=== PATIENT | female | born 1960 | race Caucasian/White ===

== ENCOUNTER → 2023-12-13 00:24 | Outpatient (REF) | payer BC, SELFPAY | LOC: DHSLP 00:24 | PROVIDERS: ATTENDING PHYSICIAN Family Medicine | DX: G47.33 Obstructive sleep apnea (adult) (pediatric) (principal) | CPT/HCPCS: 95800 ==

== ENCOUNTER → 2024-01-09 10:11 | Outpatient (REF) | payer BC, SELFPAY ==
--- NOTE | 2024-01-09 13:48 | PN.DE ---
Diabetes Education
- -
01/09/2024
Patient here for outpatient follow up for assistance with insulin pump. Sees Dr. Maldonado, endocrine, on a regular basis, who recommended more intense assistance for pump management.
Alma is using the Medtronic pump with Smart Guard and sensor. Pump settings:
Carb ratio 1:15
Correction 60
target 110 - 130
basal .8 for 24 hours.
24 hour basal total 19.2
I am able to look in the history of the pump and with every meal glucose trends up to over 250. At this visit changed carb ratio to 1:12
Alma expressed concern about her weight, reviewed her meal choices. She is eating over 100 grams of carb at meals.
Recommended she try to limit carbs to 30 grams max, for at least 5 days to establish pattern.
She will report to me in 1 week with glucose results overnight to determine of basal rates need adjustments.
She is very receptive.
== END ==
LOC: DES 10:11
PROVIDERS: ATTENDING PHYSICIAN Family Medicine
DX: E10.65 Type 1 diabetes mellitus with hyperglycemia (principal)
CPT/HCPCS: 99078

== ENCOUNTER 2024-01-10 12:48 | Outpatient (RCR) | payer BC, SELFPAY | END 2024-01-10 23:59 | disposition home or self-care (01) | LOC: RPT 12:48 | PROVIDERS: ATTENDING PHYSICIAN Psychiatry & Neurology Neurology; FAMILY PHYSICIAN Family Medicine | DX: R25.1 Tremor, unspecified (principal); Z73.6 Limitation of activities due to disability; R26.89 Other abnormalities of gait and mobility; Z91.81 History of falling | CPT/HCPCS: 97163; 97167 ==

== ENCOUNTER → 2024-01-12 07:32 | Outpatient (REF) | payer BC, SELFPAY | LOC: MRI 07:32 | PROVIDERS: ATTENDING PHYSICIAN Psychiatry & Neurology Neurology; FAMILY PHYSICIAN Family Medicine | DX: R25.1 Tremor, unspecified (principal); R26.9 Unspecified abnormalities of gait and mobility | CPT/HCPCS: 70553; A9575 ==

== ENCOUNTER → 2024-01-15 09:58 | Outpatient (REF) | payer BC, SELFPAY | LOC: REG 09:58 | PROVIDERS: ATTENDING PHYSICIAN Internal Medicine Gastroenterology | DX: K86.2 Cyst of pancreas (principal) | CPT/HCPCS: 89055 ==

== ENCOUNTER → 2024-01-16 10:11 | Outpatient (REF) | payer BC, SELFPAY ==
[2024-01-16 11:35] LABS: Hemoglobin 11.2 g/dL (12.0-16.0)
[2024-01-16 12:07] LABS: ALT (SGPT) 20 U/L (0-35); AST (SGOT) 28 U/L (14-36); Alkaline Phosphatase 102 U/L (38-126); Blood Urea Nitrogen 25 mg/dl (7-17); Calcium 8.9 mg/dl (8.4-10.2); Carbon Dioxide 27 mmol/L (22-30); Chloride 106 mmol/L (98-107); Glucose 80 mg/dl (70-99); HDL Cholesterol 68 mg/dl; LDL Cholesterol, Calculated 155 mg/dl; Potassium 4.5 mmol/L (3.5-5.1); Sodium 136 mmol/L (135-145); Total Bilirubin 0.4 mg/dl (0.2-1.3); Total Cholesterol 245 mg/dl (50-199); Total Protein 7.1 g/dl (6.3-8.2); Triglyceride 110 mg/dl (10-149); Very Low Density Lipoprotein 22 mg/dl (0-30); eGFR > 60.00
[2024-01-16 12:11] LABS: Erythrocyte Sed Rate 33 mm/hour (0-20)
[2024-01-16 12:23] LABS: Vitamin D, 25-OH*** 38.1 ng/mL (30-80)
[2024-01-16 12:36] LABS: TSH Reflex To Free T4 1.48 uIU/ml (0.47-4.68)
[2024-01-16 12:48] LABS: Glycohemoglobin (HgbA1c) 8.2 % (4.0-5.6)
[2024-01-16 12:49] LABS: Microalbumin, Random Urine > 57.0 mg/dl (0.6-1.7)
[2024-01-16 13:12] LABS: Folate 8.6 ng/ml (2.76-20); Vitamin B12 965 pg/ml (239-931)
[2024-01-17 14:27] LABS: Lyme Antibody Screen, EIA Negative (Negative)
[2024-01-18 16:30] LABS: Syphilis/T. pallidum Ab Reflex Negative (Negative)
[2024-01-19 00:19] LABS: Ceruloplasmin 29 mg/dL (16-45)
[2024-01-19 01:09] LABS: ds-DNA Ab, IgG Reflex To Titer 4 IU (0-24)
[2024-01-19 02:54] LABS: ANA, IgG Reflex to HEp-2 None Detected (None Detected)
[2024-01-19 13:41] LABS: Alpha-Tocopherol 9.9 mg/L (5.5-18.0); Gamma-Tocopherol 3.4 mg/L (0.0-6.0)
== END ==
LOC: REG 10:11
PROVIDERS: ATTENDING PHYSICIAN Internal Medicine Gastroenterology; FAMILY PHYSICIAN Family Medicine; OTHER PHYSICIAN Psychiatry & Neurology Neurology; REFERRING PHYSICIAN Internal Medicine Endocrinology, Diabetes & Metabolism
DX: K21.9 Gastro-esophageal reflux disease without esophagitis (principal); E10.319 Type 1 diabetes mellitus with unspecified diabetic retinopathy without macular edema; E78.5 Hyperlipidemia, unspecified; R25.1 Tremor, unspecified
CPT/HCPCS: 36415; 80053; 80061; 82043; 82306; 82390; 82570; 82607; 82728; 82746; 83036; 84443; 84446; 85018; 85652; 86038; 86140; 86225; 86618; 86780

== ENCOUNTER → 2024-01-25 11:43 | Outpatient (REF) | payer OTHER, BC, SELFPAY | LOC: RAD 11:43 | PROVIDERS: ATTENDING PHYSICIAN Nurse Practitioner Family | DX: M79.645 Pain in left finger(s) (principal) | CPT/HCPCS: 73130 ==

== ENCOUNTER 2024-02-15 06:35 | Outpatient (RCR) | payer BC, SELFPAY | END 2024-02-15 23:59 | disposition home or self-care (01) | LOC: RPT 06:35 | PROVIDERS: ATTENDING PHYSICIAN Psychiatry & Neurology Neurology; FAMILY PHYSICIAN Family Medicine | DX: R25.1 Tremor, unspecified (principal); R26.9 Unspecified abnormalities of gait and mobility; Z73.6 Limitation of activities due to disability | CPT/HCPCS: 97110; 97112; 97530 ==

== ENCOUNTER 2024-02-21 21:12 | Observation (INO) | payer BC, SELFPAY ==
[2024-02-21] VITALS (12 sets, daily range): BP systolic 102–219; BP diastolic 59–91; BMI 34.6
[2024-02-21] MEDS: ASPIRIN 325 MG PO (17:38)
[2024-02-21] MEDS: TYLENOL 650 MG PO (17:38)
[2024-02-21 17:40] LABS: % Basophils 0.6 % (0-2); % Eosinophils 0.8 % (0-6); % Immature Granulocytes 0.2 % (0-0.5); % Lymphocytes 27.6 % (20.5-51.1); % Monocytes 12.2 % (1.7-9.3); % Neutrophils 58.6 % (42.2-75.2); Absolute Lymphocytes 1.3 10^3/uL (1.2-3.4); Absolute Monocytes 0.6 10^3/uL (0.1-0.6); Absolute Neutrophils 2.8 10^3/uL (1.4-6.5); Hematocrit 31.8 % (37.0-47.0); Hemoglobin 10.8 g/dL (12.0-16.0); Mean Corpuscular Hgb 29.8 pg (27.0-31.0); Mean Corpuscular Volume 87.8 fL (81.0-99.0); Mean Platelet Volume 10.1 fL (7.4-10.4); Nucleated Red Blood Cells % 0 %; Platelet Count 276 10^3/uL (130-400); Red Blood Cell Count 3.62 10^6/uL (4.20-5.40); Red Cell Dist. Width 14.6 % (11.5-14.5); White Blood Cell Count 4.9 10^3/uL (4.8-10.8)
--- NOTE | 2024-02-21 17:46 | ED.GENMED ---
History of Present Illness
<Curly Rodas Jr., PA-C - Last Filed: 02/21/24 18:51>
General
Chief Complaint: Chest Pain
Source: patient
Exam Limitations: none
Time Seen by Provider: 02/21/24 16:37
Nursing documentation reviewed up to this point in time: agreed with
Travel History
Have you had any contact with someone who has COVID-19?: No
Do you have any symptoms of coronavirus? Fever > 100 degrees, chills, cough, shortness of breath, sore throat, loss of taste or smell, muscle aches, or headache?: No
History of Present Illness
History of Present Illness:
63-year-old female patient with history of insulin-dependent diabetes hypertension hyperlipidemia previous stroke presenting to the emergency department today with concerns of elevated blood pressure chest initially elevated blood pressure while at
PT yesterday chest pain started overnight last night roughly 12 hours prior to arrival to the emergency department. Ongoing pain since achy left upper chest no associated shortness of breath nausea vomiting diaphoresis. She contacted her primary
care doctor that recommended taking extra dose of losartan. Denies similar symptoms in the past.
Past History
<Curly Rodas Jr., PA-C - Last Filed: 02/21/24 18:51>
Past History
ED Past Medical History: GERD, HTN, Hypercholesterolemia, IDDM and Other (Obstructive sleep apnea)
ED Past Surgical History: Appendectomy, , Gynecological (Hysterectomy) and Other (Parathyroidectomy)
Social History
Tobacco: Non-smoker
Alcohol: Occasional
Drug: None
Personal: (Recently )
Living: with family
Employment: Employed
Family History
Family History: Early CAD
Review of Systems
<RUSLAN Márquez Jr. Last Filed: 02/21/24 18:51>
Review of Systems
Allergies reviewed?: Yes
All Other Systems: ROS reviewed and negative except as documented in HPI and ROS
Phy Exam
<Curly Rodas Jr., PA-C - Last Filed: 02/21/24 18:51>
Physical Exam
Physical Exam:
GENERAL: Alert , in no apparent distress
EYE: pupils equal and reactive
NECK: Supple, no significant adenopathy.
ENT: o/p clr, mmm.
CARDIAC: Regular rate and rhythm .
LUNGS: Clear breath sounds bilaterally, no acute respiratory distress, no wheezes/rales/rhonchi
ABDOMEN: Soft, without focal tenderness, no r/g, no cvat
NEUROLOGICAL: Alert and oriented, no focal neuro deficits
SKIN: Warm and dry, skin intact.
MUSCULOSKELETAL: No edema, well perfused.
PSYCH: Normal and appropriate interaction.
Scores
<Curly Rodas Jr., PA-C - Last Filed: 02/21/24 18:51>
Heart Score for Chest Pain Patients
STEMI patient?: No
History: Slightly or Non-Suspicious
ECG: Nonspecific Repolarization
Age: >45 - <65 years
Risk Factors: >/= 3 Risk Factors or History of CAD
Troponin: </= Normal Limit
Heart Score for Chest Pain Patients: 4
Heart Score Risk: 20.3% MACE over next 6 weeks
<Binu Gilman MD - Last Filed: 02/21/24 19:38>
Heart Score for Chest Pain Patients
Heart Score for Chest Pain Patients: 4
Heart Score Risk: 20.3% MACE over next 6 weeks
Course
<Curly Rodas Jr., PA-C - Last Filed: 02/21/24 18:51>
Orders/Labs/Results
Orders:
Orders
02/21/24 15:27
EKG [Electrocardiogram (*1)] Urgent
Reason for Study: Chest Pain
02/21/24 15:28
EKG- Treatment ONCE
02/21/24 17:26
Aspirin 325 mg PO NOW STA
02/21/24 17:34
Complete Blood Count/With Diff Urgent
Comprehensive Metabolic Panel Urgent
Troponin I Urgent
02/21/24 17:37
Acetaminophen [Tylenol] 650 mg .ROUTE .STK-MED ONE
02/21/24 17:38
Acetaminophen [Tylenol] 650 mg PO NOW STA
02/21/24 17:45
Chest [CR Chest - 2 Views ] Urgent
Comment:
Reason For Exam: cp
02/21/24 17:48
Losartan [Cozaar] 50 mg PO NOW STA
Abnormal Lab Results
02/21/24
17:34
RBC 3.62 L 10^6/uL
(4.20-5.40)
Hgb 10.8 L g/dL
(12.0-16.0)
Hct 31.8 L %
(37.0-47.0)
RDW 14.6 H %
(11.5-14.5)
Monocytes % 12.2 H %
(1.7-9.3)
Sodium 134 L mmol/L
(135-145)
BUN 27 H mg/dl
(7-17)
Glucose 126 H mg/dl
(70-99)
02/21/24 17:34
02/21/24 17:34
Vital Signs
Initial and Last Documented VS:
Initial Vital Signs
Temp Pulse Resp BP Pulse Ox
98.7 F 59 18 175/91 98
02/21/24 15:38 02/21/24 15:38 02/21/24 15:38 02/21/24 15:38 02/21/24 15:38
Last Documented Vital Signs
Temp Pulse Resp BP Pulse Ox
98.7 F 57 16 219/71 100
02/21/24 15:38 02/21/24 17:37 02/21/24 17:37 02/21/24 17:37 02/21/24 17:37
<Binu Gilman MD - Last Filed: 02/21/24 19:38>
Orders/Labs/Results
Orders:
Orders
02/21/24 15:27
EKG [Electrocardiogram (*1)] Urgent
Reason for Study: Chest Pain
02/21/24 15:28
EKG- Treatment ONCE
02/21/24 17:26
Aspirin 325 mg PO NOW STA
02/21/24 17:34
Complete Blood Count/With Diff Urgent
Comprehensive Metabolic Panel Urgent
Troponin I Urgent
02/21/24 17:37
Acetaminophen [Tylenol] 650 mg .ROUTE .STK-MED ONE
02/21/24 17:38
Acetaminophen [Tylenol] 650 mg PO NOW STA
02/21/24 17:45
Chest [CR Chest - 2 Views ] Urgent
Comment:
Reason For Exam: cp
02/21/24 17:48
Losartan [Cozaar] 50 mg PO NOW STA
Abnormal Lab Results
02/21/24
17:34
RBC 3.62 L 10^6/uL
(4.20-5.40)
Hgb 10.8 L g/dL
(12.0-16.0)
Hct 31.8 L %
(37.0-47.0)
RDW 14.6 H %
(11.5-14.5)
Monocytes % 12.2 H %
(1.7-9.3)
Sodium 134 L mmol/L
(135-145)
BUN 27 H mg/dl
(7-17)
Glucose 126 H mg/dl
(70-99)
02/21/24 17:34
02/21/24 17:34
Vital Signs
Initial and Last Documented VS:
Initial Vital Signs
Temp Pulse Resp BP Pulse Ox
98.7 F 59 18 175/91 98
02/21/24 15:38 02/21/24 15:38 02/21/24 15:38 02/21/24 15:38 02/21/24 15:38
Last Documented Vital Signs
Temp Pulse Resp BP Pulse Ox
98.7 F 57 16 219/71 100
02/21/24 15:38 02/21/24 17:37 02/21/24 17:37 02/21/24 17:37 02/21/24 17:37
<Curly Rodas Jr., PA-C - Last Filed: 02/21/24 18:51>
MDM/Problems Addressed
MDM/Problems Addressed:
63-year-old female presenting to the emergency department today with concerns of left-sided chest achy discomfort without radiation no associated nausea vomiting diaphoresis no exertional component with elevated blood pressure in the 170s 180s at
home. On arrival blood pressure in the 170s over 90s otherwise vital signs are normal. Patient no obvious distress normal heart and lung examination. EKG nonischemic labs unremarkable. Initial troponin negative. Chest x-ray with no emergent
findings no widening of the mediastinum. Blood pressure ongoing in the low 200s over 70s. Patient was given additional dose of losartan which she does take at home. Still ongoing intermittent chest pain here as well as elevated blood pressure
plan to admit for further monitoring overnight.
<Curly Rodas Jr., PA-C - Last Filed: 02/21/24 18:51>
*Critical Care Note
Total Time (30-74mins, 75-104mins- exclusive of procedures): Not Applicable
ED Attending Note
<Curly Rodas Jr., PA-C - Last Filed: 02/21/24 18:51>
-
Portions of this chart may have been created with voice recognition software.� Occasional wrong word or��sound alike� substitutions may have occurred due to the inherent limitations of voice recognition software.
<Binu Gilman MD - Last Filed: 02/21/24 19:38>
ED Attending Note
Patient seen and examined by attending physician: Yes
I performed the substantive portion of visit, reviewed & personally made and approve the management plan that is documented in note by myself or PRINCESS.: Yes
ED Attending Note:
63-year-old female woke at 4 AM with left-sided chest pain. Was there most of the morning. Resolved prior to ER arrival but recurred in the ER. No shortness of breath no pleuritic pain no shearing pain no upper back pain. No history of same
On exam patient is nontoxic in no distress. Systolic blood pressure 200+ but repeat pressure 175. Diastolic pressure stable. No respiratory distress. Lungs are clear. Abdomen nontender. Gait is normal neurologically nonfocal.
Testing has been stable. However with prolonged systolic hypertension, recurring chest pain moderate risk factors patient warrants inpatient management
Discharge Plan
Departure
Patient Disposition: Admit
Date of Disposition: 02/21/24
Time of Disposition: 18:50
Admit to: Telemetry
Admit to doctor: Vashti
Presentation/result/management discussed w/ accepting MD/DO: Hospitalist
Patient with high blood pressure during this ER visit?: Yes
Condition: Good
Covid-19: Not Applicable
Discharge Problem:
Chest pain, HTN (hypertension)
Prescriptions:
No Action
ferrous sulfate [FeroSul] 325 MG tablet
325 mg PO HS
cholecalciferol (vitamin D3) 2,000 UNITS tablet
2,000 unit PO HS
primidone 50 mg Tablet
50 mg PO DAILY
atorvastatin 20 mg Tablet
20 mg PO HS
bupropion HCl 150 mg Tablet Extended Release 24 Hr
150 mg PO HS
omeprazole 20 mg Tablet,Delayed Release (Dr/Ec)
20 mg PO HS
cyanocobalamin (vitamin B-12) [Vitamin B-12] 1,000 mcg Tablet
1,000 mcg PO HS
insulin lispro [Humalog U-100 Insulin] 100 unit/mL solution
0 unit SC .VIA INSULIN PUMP
sertraline 200 mg capsule
200 mg PO HS
losartan 50 MG tablet
50 mg PO HS
Patient Comments:
02/21/2024: Per pt, pcp wanted pt to increase Losartan to 100mg after today's visit.
aspirin [[place] Aspirin] 81 MG tablet,delayed release (DR/EC)
81 mg PO HS
Referrals:
Francisco Brar MD [Family Provider] -
Interventions
Interventions:
*Risk Screen - Suicide Last Done: 02/21/24 15:40
*General Assessment Last Done: 02/21/24 15:40
*Neglect/Abuse Screening Last Done: 02/21/24 15:40
*ED COVID-19 Vaccine History Last Done: 02/21/24 17:23
ED- Cardiac Assessment Last Done: 02/21/24 17:23
Discharge Date and Time
Print Language: ESTONIAN
[2024-02-21 17:59] LABS: ALT (SGPT) 21 U/L (0-35); AST (SGOT) 26 U/L (14-36); Albumin 4.3 g/dl (3.5-5.0); Alkaline Phosphatase 93 U/L (38-126); Blood Urea Nitrogen 27 mg/dl (7-17); Calcium 9.4 mg/dl (8.4-10.2); Carbon Dioxide 26 mmol/L (22-30); Chloride 100 mmol/L (98-107); Estimated Creatinine Clearance 86 ml/min; Glucose 126 mg/dl (70-99); Potassium 4.1 mmol/L (3.5-5.1); Sodium 134 mmol/L (135-145); Total Bilirubin 0.5 mg/dl (0.2-1.3); Total Protein 7.1 g/dl (6.3-8.2); eGFR > 60.00
[2024-02-21 18:04] LABS: Troponin I < 0.012 ng/ml
[2024-02-21] MEDS: COZAAR 50 MG PO (18:12)
--- NOTE | 2024-02-21 20:52 | HPS.HSE ---
Family Physician
-
Family Physician: Francisco Brar
Chief Complaint
-
Chest Pain
History of Present Illness
Patient is a 63-year-old female past medical history of diabetes mellitus, diabetic neuropathy, hypertension, hyperlipidemia and obstructive sleep apnea who presents with chest pain. Patient reports she awoke at 4 AM this morning with left-sided
chest pressure with occasional sharp stabbing pain. She notes pain radiates to the bilateral armpits on occasion. She denies associated shortness of breath. She denies diaphoresis, but did state she felt 'cold and clammy'. Patient reports while
working with physical therapy her blood pressure was noted to be elevated. After waking with chest pain this morning she saw her primary care provider in the office who also confirmed that her blood pressure was elevated. Patient states she did
recently start a new job where she is on her feet all day, and she notes the job is quite stressful. Patient denied any prior history of chest pain, but review of records indicate she was evaluated in the hospital in 2014 with similar presentation
of chest pain, at which time she had a negative coronary CTA as outpatient.
Medical History
Past Medical History
Past Medical History: Reports Other
Additional Past Medical History:
Diabetes Mellitus, Type II
Diabetic Neuropathy
Essential Hypertension
Hyperlipidemia
Essential Tremor
Obstructive Sleep Apnea
Hyperparathyroidism
Depression
Past Surgical History: Reports Other
Additional Past Surgical History:
Hysterectomy
Appendectomy
Parathyroidectomy
Social History
Tobacco: Non-smoker
Alcohol: Occasional
Family History
Family History: Other (Mother: Elio's granulomatosis)
Allergies / Home Medications
Allergies reflects when Allergies were last updated in [facility].
Home Medications with original date entered in [facility]
Allergy/Medication List:
Allergies
Allergy/AdvReac Type Severity Reaction Status Date / Time
amoxicillin [From Augmentin] Allergy Intermediate Hives Verified 02/21/24 15:38
clavulanic acid Allergy Intermediate Hives Verified 02/21/24 15:38
[From Augmentin]
Home Medications
cholecalciferol (vitamin D3) 50 mcg (2,000 unit) tablet 2,000 unit PO HS Supplement 06/15/15
ferrous sulfate 325 mg (65 mg iron) tablet (FeroSul) 325 mg PO HS Supplement 06/15/15
atorvastatin 20 mg tablet 20 mg PO HS High cholesterol 07/04/22
bupropion HCl 150 mg 24 hr tablet, extended release 150 mg PO HS Mental Health 07/04/22
omeprazole 20 mg tablet,delayed release 20 mg PO HS Gastrointestinal issue 07/04/22
primidone 50 mg tablet 50 mg PO DAILY tremors 07/04/22
aspirin 81 mg tablet,delayed release ([place] Aspirin) 81 mg PO HS 02/21/24
cyanocobalamin (vitamin B-12) 1,000 mcg tablet (Vitamin B-12) 1,000 mcg PO HS 02/21/24
insulin lispro 100 unit/mL subcutaneous solution (Humalog U-100 Insulin) 0 unit SC .VIA INSULIN PUMP 02/21/24
losartan 50 mg tablet 50 mg PO HS 02/21/24
sertraline 200 mg capsule 200 mg PO HS 02/21/24
Review of Systems
-
A 12 point ROS was completed and negative except as noted: Yes
Constitutional: Denies Fever or Chills
Respiratory: Denies Cough or Trouble Breathing
Cardiac: Reports Chest Pain; Denies Diaphoresis, Palpitations or Syncope
Physical Exam
Vital Signs
Vital Signs
Temp Pulse Resp BP Pulse Ox
98.7 F 66 19 150/65 98
02/21/24 15:38 02/21/24 20:15 02/21/24 20:15 02/21/24 20:00 02/21/24 17:45
Physical Exam
General: Comfortable and Conversant
HEENT: Anicteric and Moist mucous membranes
Respiratory: Clear and Non Labored Respirations
Cardiac: S1/S2 and Regular Rhythm
GI: Soft and Non Tender
Rectal: Deferred by Provider
Musculoskeletal: No Clubbing and No Cyanosis
Skin: Warm and Dry
Neuro: Awake, Alert, Oriented and Nonfocal/grossly intact
Laboratory Results
-
02/21/24 17:34
02/21/24 17:34
Laboratory Results
Total Bilirubin 0.5 mg/dl (0.2-1.3) 02/21/24 17:34
AST 26 U/L (14-36) 02/21/24 17:34
ALT 21 U/L (0-35) 02/21/24 17:34
Alkaline Phosphatase 93 U/L (38-126) 02/21/24 17:34
Troponin I < 0.012 ng/ml 02/21/24 17:34
Data Reviewed
-
Lab Data: Labs Reviewed by me
Impression/Plan
-
Chest Pain, initial troponin is negative
-Consult Cardiology
-Monitor on telemetry
-Continue to trend troponin
-Continue aspirin
-Continue nitroglycerin SL prn
Uncontrolled Hypertension
-BP improving following dose of losartan given in the emergency department
-Increase losartan 50mg BID
-Continue to monitor blood pressure
-Continue low sodium diet
Diabetes Mellitus, Type II
-Continue patient's own insulin pump
-Check HgbA1c
-Monitor sugars and continue coverage insulin
Hyperlipidemia
-Continue atorvastatin
Essential Tremor
-Continue primidone
Depression
-Continue bupropion and sertraline
Obstructive Sleep Apnea
-Patient state she has been compliant with her CPAP at home
DVT proph: Lovenox
Code Status: Full Code
--- NOTE | 2024-02-21 21:45 | W.PN.UPDATE ---
Update Note
Progress Note Update
Patient seen and examined independently. Agree with findings and plan as set forth today's H&P by Natalie Sargent PA-C.
Patient is a 63y F with PMH significant for anxiety / depression and hypertension who presents to ED complaining of elevated BP and chest pain. Patient states that she was at Occupational Therapy yesterday when routine BP check resulted in
systolic blood pressure in the 190s. This was quite unusual for the patient. She had no specific symptoms or complaints at that time. Patient notes that she woke around 4 AM today with sharp, stabbing left-sided chest pain. Area indicated is in
the anterior shoulder area. Patient states that she could feel her heart 'pounding' - but not racing / rapid. She denies any associated SOB, nausea or diaphoresis. She was able to return to sleep.
Today patient checked her BP at home and found it remained elevated in the 180s - 190s systolic. She presented to the ED for further evaluation.
Patient admits that she has been stressed lately and cites new job / position at work, standing for 8 hours / daily, etc.
Ass:
Chest Pain
Uncontrolled Hypertension
Anxiety / Depression
DM-II
Benign Essential Tremor
HARESH on CPAP
Plan:
Admitted for further evaluation and treatment.
EKG is unremarkable and troponin is undetectable.
Continue to monitor on tele and follow troponin x 3 sets total.
Monitor for any new/ recurrent chest pain symptoms.
Monitor BP - much improved after early dose of losartan.
Adjust med regimen as needed for improved control.
Patient reports increased salt load recently (canned gravy / chicken pot pie) and increased stress at work as potential etiologies of BP increase.
[2024-02-21 22:15] LABS: Glucose - Point of Care 216 mg/dl (70-99)
[2024-02-21] MEDS: VITAMIN D3 (cholecalciferol) 50 MCG PO (22:49)
[2024-02-21] MEDS: PROTONIX 40 MG PO (22:49)
[2024-02-21] MEDS: WELLBUTRIN XL (24 hour extended release) 150 MG PO (22:49)
[2024-02-21] MEDS: VITAMIN B-12 1000 MCG PO (22:49)
[2024-02-21] MEDS: ZOLOFT 200 MG PO (22:49)
[2024-02-21] MEDS: FEOSOL 325 MG PO (22:49)
[2024-02-21] MEDS: LIPITOR 20 MG PO (22:49)
[2024-02-22 00:44] LABS: Troponin I < 0.012 ng/ml
[2024-02-22] MEDS: PATIENT'S OWN INSULIN PUMP SC (01:16)
[2024-02-22 03:38] VITALS: BP 170/77
[2024-02-22 05:37] VITALS: BMI 33.5
[2024-02-22 05:57] LABS: Hematocrit 34.1 % (37.0-47.0); Hemoglobin 11.4 g/dL (12.0-16.0); Mean Corp Hgb Conc. 33.4 g/dL (33.0-37.0); Mean Corpuscular Hgb 29.5 pg (27.0-31.0); Mean Corpuscular Volume 88.1 fL (81.0-99.0); Mean Platelet Volume 9.9 fL (7.4-10.4); Platelet Count 277 10^3/uL (130-400); Red Blood Cell Count 3.87 10^6/uL (4.20-5.40); Red Cell Dist. Width 14.7 % (11.5-14.5)
[2024-02-22 06:22] LABS: Troponin I < 0.012 ng/ml
[2024-02-22 06:32] LABS: Blood Urea Nitrogen 26 mg/dl (7-17); Calcium 9.6 mg/dl (8.4-10.2); Carbon Dioxide 27 mmol/L (22-30); Chloride 101 mmol/L (98-107); Estimated Creatinine Clearance 84 ml/min; Glucose 148 mg/dl (70-99); HDL Cholesterol 77 mg/dl; LDL Cholesterol, Calculated 85 mg/dl; Potassium 4.1 mmol/L (3.5-5.1); Sodium 138 mmol/L (135-145); Total Cholesterol 184 mg/dl (50-199); Triglyceride 114 mg/dl (10-149); Very Low Density Lipoprotein 22 mg/dl (0-30); eGFR > 60.00
[2024-02-22 07:30] VITALS: BP 159/73
[2024-02-22 07:44] LABS: Glucose - Point of Care 116 mg/dl (70-99)
[2024-02-22] MEDS: MYSOLINE 50 MG PO (08:24)
[2024-02-22] MEDS: COZAAR 50 MG PO ×2 (08:24→21:36)
[2024-02-22] MEDS: PATIENT'S OWN INSULIN PUMP 2.60000000000000009 UNITS SC (08:29)
[2024-02-22 08:50] LABS: Glycohemoglobin (HgbA1c) 7.7 % (4.0-5.6)
--- NOTE | 2024-02-22 09:07 | CON.CAR ---
Addendum entered and electronically signed by Newtno Bray MD 02/22/24 11:15:
I saw and examined the patient.
The APPLICATION DEVELOPMENT TEAM LEAD or PA's note was reviewed and I agree with the note.
Comment: General: Well developed, well nourished in NAD.
Neck: Supple, no JVD, HJR, carotids +2 B/L, no bruits bilaterally.
Heart: Non displaced PMI, RRR, no murmurs, No S3, S4, no rubs.
Lungs: Clear to auscultation bilaterally, no wheeze, rhonchi, rubs bilaterally,
normal expiratory phase.
Abdomen: Normal bowel sounds, soft, non-tender, non-distended.
Extremities: No clubbing, cyanosis or edema bilaterally.
Neuro: Grossly nonfocal, awake, alert and oriented x3.
Alma has history of hypertension, hyperlipidemia, type 1 diabetes, hyperparathyroidism status post parathyroidectomy, essential tremor, anxiety. She presents complaints of chest discomfort and hypertension. She woke up at 4 AM with left-sided
chest discomfort came to the ER. Troponins have been negative. Cardiology was consulted.
Chest pain likely noncardiac. Will arrange for outpatient Lexiscan sestamibi stress test. Will check echocardiogram which was planned when last seen in our office. Will add HCTZ for blood pressure and check renal profile in 1 week. If
echocardiogram okay stable cardiology status for discharge
Original Note:
Consultation
Consultation Request
Date/Time Consultation Performed: 02/22/24
Requesting Provider: Dr. Lowe
Performing Provider: Alisa Walton PA-C for Dr. Bray
Reason for Consultation: CP, HTN
Medical History
-
Chief Complaint: CP
History of Present Illness:
Patient is a 63-year-old female with past medical history of hypertension, hyperlipidemia, type 1 diabetes diagnosed at age 33 in the setting of pancreatitis in setting, essential tremor, former smoker, iron deficiency, anxiety who works
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 She states on Monday 02/19 she was completing physical therapy and Occupational Therapy and they checked her blood pressure which was elevated at 186/70. They told her to repeat it the following morning at home
which she did and was 199/99. She also woke up yesterday morning at 4 AM with left-sided chest discomfort and feeling of her heart pounding. She was able to calm down with deep breathing. She was seen by her PCP yesterday afternoon and was told to
double her losartan from 50 mg daily to 50 mg twice daily, however was referred to the emergency room as she complained of headache and chest pain in the setting of elevated blood pressure. Upon further questioning today, patient does tell me she
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 She has been stressed out with her new duties as she is learning how to
complete them. Trops serially negative. Cardiology consulted for evaluation. She underwent exercise MIBI in 2014 in the setting of chest pain completing over 9 METS with a small mostly fixed anteroapical defect with subsequent cardiac CTA which was
unremarkable with calcium score of 0.
PMH:
HTN
HLD
DM1, diagnosed at age 33 in the setting of pancreatitis in setting, suboptimally controlled
History of hyperparathyroidism status post parathyroidectomy
Sinus bradycardia
Essential tremor
NETTA
Anxiety
GERD
Former smoker
Past Medical History
Past Medical History: Other (in HPI)
Social History
Tobacco: Former Smoker
Employment: Employed
Family History
Family History: Other (CVA in father)
Allergies / Home Medications
Allergy/AdvReac Type Severity Reaction Status Date / Time
amoxicillin [From Augmentin] Allergy Intermediate Hives Verified 02/21/24 15:38
clavulanic acid Allergy Intermediate Hives Verified 02/21/24 15:38
[From Augmentin]
�Medication �Instructions �Recorded �Confirmed �Type
cholecalciferol (vitamin D3) 50 2,000 unit PO HS Supplement 06/15/15 02/21/24 History
mcg (2,000 unit) tablet
ferrous sulfate 325 mg (65 mg 325 mg PO HS Supplement 06/15/15 02/21/24 History
iron) tablet (FeroSul)
atorvastatin 20 mg tablet 20 mg PO HS High cholesterol 07/04/22 02/21/24 History
bupropion HCl 150 mg 24 hr tablet, 150 mg PO HS Mental Health 07/04/22 02/21/24 History
extended release
omeprazole 20 mg tablet,delayed 20 mg PO HS Gastrointestinal issue 07/04/22 02/21/24 History
release
primidone 50 mg tablet 50 mg PO DAILY tremors 07/04/22 02/21/24 History
aspirin 81 mg tablet,delayed 81 mg PO HS 02/21/24 02/21/24 History
release ([place] Aspirin)
cyanocobalamin (vitamin B-12) 1,000 mcg PO HS 02/21/24 02/21/24 History
1,000 mcg tablet (Vitamin B-12)
insulin lispro 100 unit/mL 0 unit SC .VIA INSULIN PUMP 02/21/24 02/21/24 History
subcutaneous solution (Humalog
U-100 Insulin)
losartan 50 mg tablet 50 mg PO HS 02/21/24 02/21/24 History
sertraline 200 mg capsule 200 mg PO HS 02/21/24 02/21/24 History
Review of Systems
-
History Source: Patient
All other systems: Negative unless noted
Physical Exam
Vital Signs
Temp Pulse Resp BP Pulse Ox
98.6 F 51 22 159/73 98
02/22/24 07:30 02/22/24 08:24 02/22/24 07:30 02/22/24 08:24 02/22/24 07:30
Lab Results
02/22/24 05:25
02/22/24 05:25
Troponin I < 0.012 ng/ml 02/22/24 05:25
Physical Exam
General: Well Developed, Well Nourished, No Apparent Distress and Other (appears anxious)
HEENT: Normocephalic, Anicteric and Moist Mucous Membranes
Respiratory: Clear and Non Labored Respirations
Cardiac: S1/S2, Regular Rhythm and Other (santiago)
GI: Soft, Non Tender, Non Distended and Normal Bowel Sounds
Musculoskeletal: No Clubbing, No Cyanosis and No Edema
Skin: Warm and Dry
Neuro: AO x 3
Impression / Plan
-
Primary Sustainability Analyst: last seen by Dr. Cuellar in 2017
Assessment:
Presentation with HTN urgency
CP
Recent NSAID use
Serially negative trops x4
HTN
HLD
DM1, diagnosed at age 33 in the setting of pancreatitis in setting, suboptimally controlled
History of hyperparathyroidism status post parathyroidectomy
Sinus bradycardia
Essential tremor
NETTA
Anxiety
GERD
Former smoker
Exercise MIBI in 2014 in the setting of chest pain completing over 9 METS with a small mostly fixed anteroapical defect with subsequent cardiac CTA which was unremarkable with calcium score of 0
ECHO 02/22/24: pending
Plan:
-Patient presents with hypertensive urgency and chest pain
-Reports recent NSAID use. provided education on avoiding NSAIDs, decongestants, high salt content in setting of HTN
-Troponins serially negative
-EKG sinus bradycardia without acute ST abnormalities. No present chest pain
-Continue increased dose losartan 50 mg twice daily
-As blood pressures remain elevated, would consider addition of HCTZ 25mg daily with BMP in 1 week upon DC
-Check echo
-She has been working with diabetic mgmt to improve hgbA1c - was 13.2 in 2021, improved to 8.2 01/16/24. encouraged strict blood sugar control
-LDL suboptimal in setting of diabetes, 85. will increase lipitor dose to 40mg QPM
-given risk factors and CP, consider for OP stress testing
-continue OP aspirin. hgb stable at 11.4. remains on po iron
-will arrange OP cardiac follow up
Data Reviewed
-
EKG: Tracing Personally Visualized and interpreted
Radiology: Report Reviewed by me
Labs: Labs Reviewed by me
Old Records: Reviewed
[2024-02-22 11:49] LABS: Glucose - Point of Care 193 mg/dl (70-99)
--- NOTE | 2024-02-22 12:14 | W.PN.HOSP.TC ---
Today's Communication/Plan
-
check ECHO
Assessment / Plan
Assessment / Plan
pt is a 63 year old female
Chest Pain, initial troponin is negative--likely non cardiac--await echo--adjusting BP meds--need better anxiety/stress control
Uncontrolled Hypertension-BP improving following dose of losartan given in the emergency department-Increase losartan 50mg BID-Continue to monitor blood pressure-Continue low sodium diet--cards may add HCTZ
Diabetes Mellitus, Type II-Continue patient's own insulin pump-Check [id number]-Dbszuog sugars and continue coverage insulin
Hyperlipidemia-Continue atorvastatin
Essential Tremor-Continue primidone
Depression-Continue bupropion and sertraline
Obstructive Sleep Apnea-Patient state she has been compliant with her CPAP at home
DVT proph: Lovenox
Code Status: Full Code
Anticipated Discharge: Within 24 hours
Subjective/Interval History
-
Date of Service: February 22, 2024
pt concerned about BP--not adjusting to new job
Objective Data
-
Labs:
Laboratory Results
02/22/24
05:25
WBC 4.0 L
Hgb 11.4 L
Hct 34.1 L
Plt Count 277
Sodium 138
Potassium 4.1
Chloride 101
Carbon Dioxide 27
BUN 26 H
Creatinine 0.8
Glucose 148 H
Calcium 9.6
Vital Signs:
max temp for 24 hours
02/21/24
15:38
Temp 98.7 F
Vital Signs
Temp Pulse Resp BP Pulse Ox
98.6 F 51 22 159/73 98
02/22/24 07:30 02/22/24 08:24 02/22/24 07:30 02/22/24 08:24 02/22/24 07:30
I&O
02/21/24 02/22/2402/22/24
06:59 06:59 06:59
Intake Total 480 / 480
Balance 480 / 480
Review of Systems
-
All other systems: Reviewed and negative
Physical Exam
-
General: Well Developed, Well Nourished and No Apparent Distress
HEENT: Normocephalic and Atraumatic
Respiratory: Clear to Auscultation; Negative Wheezes or Rhonchi
Cardiac: Regular Rhythm and S1/S2; Negative Murmur
GI: Soft, Nontender, Nondistended and Normal Bowel Sounds
Musculoskeletal: No Clubbing, No Cyanosis and No Edema
Neuro: Awake and Alert
[2024-02-22 12:19] VITALS: BP 159/68; BP 172/74
[2024-02-22] MEDS: ORETIC 25 MG PO (12:29)
[2024-02-22] MEDS: PATIENT'S OWN INSULIN PUMP 3.60000000000000009 UNITS SC (13:01)
[2024-02-22 15:00] VITALS: BP 178/79
--- NOTE | 2024-02-22 16:34 | CM ---
telegraph office manager reviewed patient's chart and met with patient and patient lives alone in a one story home, patient is independent with adl's and ambulation, no dme, patient lives with her 2 dogs, patient has CPAP machine. Patient drives, [facility] pharmacy.
PCP: Dr Brar
Plan; Home when stable, no needs. OBS letter given not signed.
[2024-02-22 17:10] LABS: Glucose - Point of Care 251 mg/dl (70-99)
[2024-02-22] MEDS: PATIENT'S OWN INSULIN PUMP 4.59999999999999964 UNITS SC (18:19)
[2024-02-22] MEDS: LOVENOX 40 MG SC (18:20)
[2024-02-22 19:58] VITALS: BP 176/76
[2024-02-22] MEDS: FEOSOL 325 MG PO (21:41)
[2024-02-22] MEDS: VITAMIN D3 (cholecalciferol) 50 MCG PO (21:41)
[2024-02-22] MEDS: VITAMIN B-12 1000 MCG PO (21:41)
[2024-02-22] MEDS: PROTONIX 40 MG PO (21:41)
[2024-02-22] MEDS: WELLBUTRIN XL (24 hour extended release) 150 MG PO (21:41)
[2024-02-22] MEDS: LIPITOR 40 MG PO (21:41)
[2024-02-22] MEDS: ZOLOFT 200 MG PO (21:42)
[2024-02-22] MEDS: ASPIR LOW (ENTERIC COATED) 81 MG PO (21:42)
[2024-02-22] MEDS: PATIENT'S OWN INSULIN PUMP 1.80000000000000004 UNITS SC (22:05)
[2024-02-22 22:10] LABS: Glucose - Point of Care 189 mg/dl (70-99)
[2024-02-22 22:55] VITALS: BP 177/77
[2024-02-23 03:50] VITALS: BP 131/64
[2024-02-23 05:47] VITALS: BMI 32.9
[2024-02-23 07:00] VITALS: BP 149/71
[2024-02-23 07:07] LABS: Hemoglobin 12.4 g/dL (12.0-16.0); Mean Corp Hgb Conc. 32.6 g/dL (33.0-37.0); Mean Corpuscular Hgb 29.2 pg (27.0-31.0); Mean Corpuscular Volume 89.4 fL (81.0-99.0); Mean Platelet Volume 10.4 fL (7.4-10.4); Platelet Count 274 10^3/uL (130-400); Red Blood Cell Count 4.25 10^6/uL (4.20-5.40); Red Cell Dist. Width 14.6 % (11.5-14.5); White Blood Cell Count 5.1 10^3/uL (4.8-10.8)
[2024-02-23 07:25] LABS: Glucose - Point of Care 165 mg/dl (70-99)
[2024-02-23 07:33] LABS: Blood Urea Nitrogen 26 mg/dl (7-17); Calcium 9.8 mg/dl (8.4-10.2); Carbon Dioxide 28 mmol/L (22-30); Chloride 99 mmol/L (98-107); Estimated Creatinine Clearance 74 ml/min; Glucose 145 mg/dl (70-99); Magnesium 1.9 mg/dl (1.6-2.3); Potassium 4.3 mmol/L (3.5-5.1); Sodium 137 mmol/L (135-145); eGFR > 60.00
[2024-02-23] MEDS: ORETIC 25 MG PO (08:10)
[2024-02-23] MEDS: MYSOLINE 50 MG PO (08:10)
[2024-02-23] MEDS: COZAAR 50 MG PO (08:11)
[2024-02-23] MEDS: PATIENT'S OWN INSULIN PUMP 1 UNITS SC (09:33)
--- NOTE | 2024-02-23 10:56 | W.PN.HOSP.TC ---
Today's Communication/Plan
-
d/c
Assessment / Plan
Assessment / Plan
pt is a 63 year old female
Chest Pain, initial troponin is negative--likely non cardiac--echo WNL--adjusting BP meds--need better anxiety/stress control
Uncontrolled Hypertension--BP improving following dose of losartan given in the emergency department--Increase losartan 50mg BID-Continue to monitor blood pressure-Continue low sodium diet--cards added HCTZ
Diabetes Mellitus, Type II-Continue patient's own insulin pump-Check [id number]-Ubnkddu sugars and continue coverage insulin
Hyperlipidemia-Continue atorvastatin
Essential Tremor-Continue primidone
Depression-Continue bupropion and sertraline
Obstructive Sleep Apnea-Patient state she has been compliant with her CPAP at home
DVT proph: Lovenox
Code Status: Full Code
Anticipated Discharge: Today
Subjective/Interval History
-
Date of Service: February 23, 2024
BPs better--pt upset about OBS status
Objective Data
-
Labs:
Laboratory Results
02/23/24
06:08
WBC 5.1
Hgb 12.4
Hct 38.0
Plt Count 274
Sodium 137
Potassium 4.3
Chloride 99
Carbon Dioxide 28
BUN 26 H
Creatinine 0.9
Glucose 145 H
Calcium 9.8
Vital Signs:
max temp for 24 hours
02/22/24
15:00
Temp 98.3 F
Vital Signs
Temp Pulse Resp BP Pulse Ox
97.9 F 62 18 149/71 99
02/23/24 07:00 02/23/24 08:11 02/23/24 07:00 02/23/24 08:11 02/23/24 07:00
I&O
02/22/24 02/23/24 02/24/24
06:59 06:59 06:59
Intake Total 480 / 480 960 / 960
Balance 480 / 480 960 / 960
Review of Systems
-
All other systems: Reviewed and negative
Physical Exam
-
General: Well Developed, Well Nourished and No Apparent Distress
HEENT: Normocephalic and Atraumatic
Respiratory: Clear to Auscultation; Negative Wheezes
Cardiac: Regular Rhythm and S1/S2; Negative Murmur
GI: Soft, Nontender, Nondistended and Normal Bowel Sounds
Musculoskeletal: No Clubbing, No Cyanosis and No Edema
Skin: Warm
Neuro: Awake
[2024-02-23 11:00] VITALS: BP 133/68
[2024-02-23 11:39] LABS: Glucose - Point of Care 249 mg/dl (70-99)
--- NOTE | 2024-02-23 11:39 | W.PN.CARDCBS ---
Today's Communication / Plan
-
Cont higher dose losartan and newly started HCTZ
Cardiology f/u arranged
Impression / Plan
-
PCP: Dr. Francisco Brar
Primary Manager Lvn: last seen by Dr. Cuellar in 2016
Assessment:
Presentation with HTN urgency
Chest pain
Recent NSAID use
Serially negative trops x4
HTN
HLD
DM1, diagnosed at age 33 in the setting of pancreatitis in setting, suboptimally controlled
History of hyperparathyroidism status post parathyroidectomy
Sinus bradycardia
Essential tremor
NETTA
Anxiety
GERD
Former smoker
Exercise MIBI in 2014 in the setting of chest pain completing over 9 METS with a small mostly fixed anteroapical defect with subsequent cardiac CTA which was unremarkable with calcium score of 0
ECHO 02/22/24: EF 55-60%, normal diastolic function
Plan:
-Troponin serially undetectable, no recurrence of chest pain
-Echo reviewed and a paper copy of report given to patient
-Outpatient stress test being arranged
-BP is improved with initiation of HCTZ 25 mg daily, check BMP in 1 week
-HTN urgency on admission in the setting of recent NSAID use. Educated on avoiding NSAIDs, decongestants, high salt content in setting of HTN
-Continue increased dose losartan 50 mg twice daily as well
-She has been working with diabetic mgmt to improve hgbA1c - was 13.2 in 2021, improved to 8.2 01/16/24. encouraged strict blood sugar control
-LDL suboptimal in setting of diabetes, 85. Increased Lipitor dose to 40mg QPM
-Outpatient follow up arranged
Progress Note - Manager Lvn
Subjective
Date of Service: February 23, 2024
She feels well, but is stressed about observation level of admission
Objective
Labs:
02/23/24 06:08
02/23/24 06:08
Labs
Hgb 12.4 g/dL (12.0-16.0) 02/23/24 06:08
Hct 38.0 % (37.0-47.0) 02/23/24 06:08
Plt Count 274 10^3/uL (130-400) 02/23/24 06:08
Sodium 137 mmol/L (135-145) 02/23/24 06:08
Potassium 4.3 mmol/L (3.5-5.1) 02/23/24 06:08
BUN 26 mg/dl (7-17) H 02/23/24 06:08
Creatinine 0.9 mg/dL (0.6-1.0) 02/23/24 06:08
Glucose 145 mg/dl (70-99) H 02/23/24 06:08
Troponins
02/21/24 02/21/24 02/22/24
17:34 23:51 05:25
Troponin I < 0.012 < 0.012 < 0.012
Vital Signs and I&O:
Vital Signs
Temp Pulse Resp BP Pulse Ox
97.9 F 62 18 149/71 99
02/23/24 07:00 02/23/24 08:11 02/23/24 07:00 02/23/24 08:11 02/23/24 07:00
Vital Signs
Temp Pulse Resp BP Pulse Ox
97.9 F 62 18 149/71 99
02/23/24 07:00 02/23/24 08:11 02/23/24 07:00 02/23/24 08:11 02/23/24 07:00
Intake & Output
02/21/24 02/22/24 02/23/24 02/24/24
06:59 06:59 06:59 06:59
Intake Total 480 / 480 960 / 960
Balance 480 / 480 960 / 960
Physical Exam
Physical Exam
GEN: AAOx3
HEENT: MMM
LUNGS: No audible wheeze
CV: Reg
ABD: ND
EXT: No edema
NEURO: Gross non-focal
SKIN: No rash
[2024-02-23] MEDS: PATIENT'S OWN INSULIN PUMP 3.60000000000000009 UNITS SC (12:03)
--- NOTE | 2024-02-23 12:15 | CM ---
CM reviewed chart, patient plan home no needs. CM will continue to follow for discharge planning needs.
Plan; home no needs.
--- NOTE | 2024-02-23 13:32 | W.DCSUMMARY ---
Discharge Summary
Discharge Data
Date of Admission: 02/21/24
Date of Discharge: 02/23/24
-
Pending Results: No
Hospital Course
Primary care physician : Francisco Brar
Principal Discharge diagnosis : Uncontrolled essential hypertension
Chronic Discharge diagnosis : Type 2 diabetes mellitus, hyperlipidemia, essential tremor, depression/anxiety/stress, obstructive sleep apnea
Hospital Course : Patient was a 63-year-old female with medical issues as listed above. She woke at 4 in the morning with left-sided chest pressure and occasional sharp, stabbing pain. Pain radiated to the bilateral armpits. She denied
diaphoresis but did states she felt 'cold and clammy'. Patient reported that her blood pressure was elevated. She did see her primary care provider in the office on the morning of her chest pain situation who also confirmed her blood pressure was
elevated. Patient started a new job where she was on her feet all day and she knows the job is stressful. Patient was brought in as observation.
Problem #1: Uncontrolled essential hypertension. Patient was seen in consultation by cardiology. Her losartan was changed to 50 mg twice daily. She was also started on hydrochlorothiazide at noon. Patient did have troponins checked because of
her chest pain. This was felt to be noncardiac related chest pain. Troponins were negative. Echocardiogram was done which was completely normal. Blood pressure was much improved with the addition of hydrochlorothiazide and the increase of her
losartan dose. Of note, I do believe that stress/anxiety is playing a large role here. We will defer to her primary care physician regarding treatment/medication adjustments of her anxiety and stress.
Problem #2: All other medical issues. These include Type 2 diabetes mellitus, hyperlipidemia, essential tremor, depression/anxiety/stress, obstructive sleep apnea. These medical issues were stable during her hospitalization with the exception of
the anxiety and stress as mentioned above. Medications were continued as able.
Patient is stable for discharge home at this time. If there are any questions regarding this dictation or her hospital stay, please not hesitate to call. Our office number is [phone].
Discharge Plan
-
Patient Disposition: Home (Routine Discharge)
Discharge Diagnosis/Procedures: Uncontrolled hypertension, type 2 diabetes mellitus with insulin pump, hyperlipidemia, essential tremor, depression, obstructive sleep apnea
Condition: Good
Diet: Low Cholesterol and Low Sodium
Activity: No restrictions
Driving Restrictions: As prior to admission
Bathing Restrictions: None
Blood Work: BMP in 1 week--results to cardiology
Activity Restrictions/Additional Instructions:
You are scheduled for a lexiscan nuclear stress test on 03/04/24 @7AM at Cardiac services in [facility]. please refer to instruction packet for further details.
Referrals:
Francisco Brar MD [Family Provider] - in less than 1 week
Nettie Salinas PA-C [Specified Professional Personl] - 03/11/24 4:00 pm (You have a cardiology follow-up appointment at the [facility]. Please call with questions)
Additional Discharge Medication Instructions: AVOID NSAIDs (aleve, ibuprofen, advil)
Prescriptions:
New
atorvastatin 40 mg Tablet
40 mg PO HS Qty: 30 0RF
Rx Instructions:
dose change
losartan 50 mg Tablet
50 mg PO BID Qty: 60 0RF
Rx Instructions:
dose change
nitroglycerin 0.4 mg Tablet, Sublingual
0.4 mg sublingual [id number] PRN (Reason: chest pain) Qty: 10 0RF
hydrochlorothiazide 25 mg Tablet
25 mg PO DAILY Qty: 30 0RF
Rx Instructions:
take daily at noon
acetaminophen 325 mg Tablet
650 mg PO Q4HPRN PRN (Reason: temp > 101 F) Qty: 0 0RF
Insulin Pump [Patient's Own Insulin Pump]
See Rx Instructions .ROUTE .COMPLEX Qty: 0 0RF
Rx Instructions:
as directed
Continued
ferrous sulfate [FeroSul] 325 MG tablet
325 mg PO HS
cholecalciferol (vitamin D3) 2,000 UNITS tablet
2,000 unit PO HS
primidone 50 mg Tablet
50 mg PO DAILY
bupropion HCl 150 mg Tablet Extended Release 24 Hr
150 mg PO HS
omeprazole 20 mg Tablet,Delayed Release (Dr/Ec)
20 mg PO HS
cyanocobalamin (vitamin B-12) [Vitamin B-12] 1,000 mcg Tablet
1,000 mcg PO HS
insulin lispro [Humalog U-100 Insulin] 100 unit/mL solution
0 unit SC .VIA INSULIN PUMP
sertraline 200 mg capsule
200 mg PO HS
aspirin [[place] Aspirin] 81 MG tablet,delayed release (DR/EC)
81 mg PO HS
Discontinued
atorvastatin 20 mg Tablet
20 mg PO HS
losartan 50 MG tablet
50 mg PO HS
Patient Comments:
02/21/2024: Per pt, pcp wanted pt to increase Losartan to 100mg after today's visit.
Discharge Orders:
Discharge Patient (As Directed); Ordered 02/23/24
Ordered By: Shelley Lowe
Discharge Date and Time
Discharge Date/Time: 02/23/24 12:10
Print Language: BELARUSIAN
== END 2024-02-23 12:10 | disposition home or self-care (01) ==
LOC: 4 WEST ACU 21:12
PROVIDERS: Emergency Medicine; Physician Assistant Medical; ADMITTING PHYSICIAN Hospitalist; ATTENDING PHYSICIAN Internal Medicine; EMERGENCY PHYSICIAN Emergency Medicine; FAMILY PHYSICIAN Family Medicine; OTHER PHYSICIAN Internal Medicine Cardiovascular Disease
DX: I16.0 Hypertensive urgency (principal); R07.89 Other chest pain; I10 Essential (primary) hypertension; E10.40 Type 1 diabetes mellitus with diabetic neuropathy, unspecified; Z79.4 Long term (current) use of insulin; E78.00 Pure hypercholesterolemia, unspecified; Z82.49 Family history of ischemic heart disease and other diseases of the circulatory system; G25.0 Essential tremor; J98.11 Atelectasis; R00.1 Bradycardia, unspecified; F32.A Depression, unspecified; F41.9 Anxiety disorder, unspecified; K21.9 Gastro-esophageal reflux disease without esophagitis; G47.33 Obstructive sleep apnea (adult) (pediatric); E21.3 Hyperparathyroidism, unspecified; Z88.0 Allergy status to penicillin; Z88.1 Allergy status to other antibiotic agents; Z79.82 Long term (current) use of aspirin; Z56.6 Other physical and mental strain related to work; Z87.19 Personal history of other diseases of the digestive system; Z87.891 Personal history of nicotine dependence
CPT/HCPCS: 71046; 80048; 80053; 80061; 82962; 83036; 83735; 84484; 85025; 85027; 93005; 93306; 99285; G0378

== ENCOUNTER 2024-02-22 07:09 | Outpatient (RCR) | payer BC, SELFPAY | END 2024-02-22 23:59 | disposition home or self-care (01) | LOC: RPT 07:09 | PROVIDERS: ATTENDING PHYSICIAN Psychiatry & Neurology Neurology; FAMILY PHYSICIAN Family Medicine | DX: R25.1 Tremor, unspecified (principal); R26.89 Other abnormalities of gait and mobility; Z73.6 Limitation of activities due to disability | CPT/HCPCS: 97110; 97112; 97140; 97530 ==

== ENCOUNTER → 2024-03-04 06:46 | Outpatient (REF) | payer BC, SELFPAY ==
[2024-03-04] MEDS: LEXISCAN 0.400000000000000022 MG IV (08:31)
[2024-03-04] MEDS: FLUSH (NSS) 1 FLUSH IV (08:31)
[2024-03-04] MEDS: AMINOPHYLLINE 75 MG IV (09:12)
== END ==
LOC: RCS 06:46
PROVIDERS: ATTENDING PHYSICIAN Internal Medicine Cardiovascular Disease; FAMILY PHYSICIAN Family Medicine; REFERRING PHYSICIAN Internal Medicine
DX: I16.0 Hypertensive urgency (principal); R07.9 Chest pain, unspecified; E10.9 Type 1 diabetes mellitus without complications
CPT/HCPCS: 78452; 93017; A9500; J2785

== ENCOUNTER → 2024-03-13 06:17 | Day surgery (SDC) | payer BC, SELFPAY ==
[2024-03-13 07:56] LABS: Glucose - Point of Care 321 mg/dl (70-99)
== END ==
LOC: GI 06:17
PROVIDERS: ATTENDING PHYSICIAN Internal Medicine Gastroenterology; FAMILY PHYSICIAN Family Medicine
DX: Z12.11 Encounter for screening for malignant neoplasm of colon (principal); K64.8 Other hemorrhoids; K63.5 Polyp of colon; K44.9 Diaphragmatic hernia without obstruction or gangrene; K29.50 Unspecified chronic gastritis without bleeding; K21.00 Gastro-esophageal reflux disease with esophagitis, without bleeding; Z86.010 Personal history of colon polyps
CPT/HCPCS: 45380; 43239; 88305; 82962; 88342

== ENCOUNTER 2024-03-21 09:08 | Outpatient (RCR) | payer BC, SELFPAY | END 2024-04-01 14:40 | disposition home or self-care (01) | LOC: RPT 09:08 | PROVIDERS: ATTENDING PHYSICIAN Psychiatry & Neurology Neurology; FAMILY PHYSICIAN Family Medicine | DX: R25.1 Tremor, unspecified (principal); R26.9 Unspecified abnormalities of gait and mobility; Z73.6 Limitation of activities due to disability | CPT/HCPCS: 97110; 97112 ==

== ENCOUNTER 2024-03-26 19:01 | Emergency (ER) | payer BC, SELFPAY ==
[2024-03-26 19:06] VITALS: BP 167/77
--- NOTE | 2024-03-26 20:40 | ED.GENMED ---
History of Present Illness
General
Chief Complaint: Head Injury
Source: patient
Exam Limitations: none
Time Seen by Provider: 03/26/24 19:49
Travel History
Have you had any contact with someone who has COVID-19?: No
Do you have any symptoms of coronavirus? Fever > 100 degrees, chills, cough, shortness of breath, sore throat, loss of taste or smell, muscle aches, or headache?: No
History of Present Illness
History of Present Illness:
This is a 63 year old female that comes in with c/p fall. States that she goes to PT/OT for her balance States that last night she was pulling the cord on her ceiling fan and forgot that there was a basket in front of her as her room was dark.
States that she went to move forward and tripped over the basket. States that she face planted on the wooden tray table. States that she doesn't think she had any LOC. States that her boss felt that she needed to be seen so sent her to the ER.
States that she has a headache and is nauseated. Denies any fever, chills, chest pain, SOB, abd pain, vomiting, diarrhea, dizziness, urinary burning.
Past History
Past History
ED Past Medical History: GERD, HTN, Hypercholesterolemia, IDDM, Psychiatric (Anxiety, Depression) and Other (Obstructive sleep apnea, ear infections, Tinnitus, )
ED Past Surgical History: Appendectomy, , Gynecological (Hysterectomy, Tubal, ) and Other (Parathyroidectomy, Myringotomy , )
Social History
Tobacco: Former smoker
Alcohol: Occasional
Drug: None
Personal: (Recently )
Living: alone
Employment: Employed
Family History
Family History: Early CAD
Review of Systems
Review of Systems
All Other Systems: ROS reviewed and negative except as documented in HPI and ROS
Constitutional: Reports no symptoms; Denies fever or chills
EENT: Reports no symptoms
Respiratory: Reports no symptoms; Denies cough or trouble breathing
Cardiac: Reports no symptoms; Denies chest pain
ABD/GI: Reports nausea; Denies abdominal pain, vomiting or diarrhea
: Reports no symptoms; Denies dysuria, frequency or urgency
Musculoskeletal: Reports other (Left sided facial discomfort)
Skin: Reports no symptoms
Neurological: Reports headache; Denies dizzy
Psychiatric: Reports no symptoms
Phy Exam
General Physical Exam
General Presentation: no apparent distress
General age: appears stated age
General Skin: warm and dry
General Habitus: normal
General Mental: alert
General Hydration: appears well hydrated
ENT Exam
ENT Exam: TM's normal, pharynx normal and neck supple
Eye Exam
Eye Exam: EOMI
Musculoskeletal Exam
Musculoskeletal Exam: full ROM and other (Negative for any cervical neck tenderness, Tenderness around the left orbit)
Skin Exam
Skin Exam: normal color, warm/dry, no petechia and other (Contusion noted on the right forearm and around the left eye with abrasion of the left eyebrow)
Psychiatric Exam
Psychiatric Exam: normal mood/affect
Course
Orders/Labs/Results
Orders:
Orders
03/26/24 20:35
CT Facial Bones W/o Iv Contras Urgent
Comment:
Reason For Exam: fall
03/26/24 20:39
CT Head W/o Iv Contrast Urgent
Comment:
Reason For Exam: Fall hitting head
Vital Signs
Initial and Last Documented VS:
Initial Vital Signs
Temp Pulse Resp BP Pulse Ox
98.3 F 62 16 167/77 99
03/26/24 19:06 03/26/24 19:06 03/26/24 19:06 03/26/24 19:06 03/26/24 19:06
Last Documented Vital Signs
Temp Pulse Resp BP Pulse Ox
98.3 F 62 16 167/77 99
03/26/24 19:06 03/26/24 19:06 03/26/24 19:06 03/26/24 19:06 03/26/24 19:06
MDM/Problems Addressed
Differential Diagnosis Includes:
Concussion. Orbital fracture,
MDM/Problems Addressed:
This is a 63 year old female that comes in with c/o fall. States that she tripped last night and fell into a wooden tray table. States that she face planted and has had a headache with nausea and discomfort around the left eye with movement of her
facial muscles.
Will get CT head and facial bones.
Back into see patient. Explained that the CT of the head is normal and there are no facial bone fractures. Patient to use Tylenol for any headache pain. Return with increased headache pain that is not relieved by Tylenol or vomiting more then twice.
Explained that this is most likely a concussion.
Chronic conditions affecting care:
NA
Acute Exacerbation and/or Progression of Chronic Illness:
NA
*Radiology
Radiology exam reviewed: radiology read reviewed (CT head-No evidence of acute intracranial abnormality. Left periorbital soft tissue contusion, Extending into the interior left frontal scalp. Facial bones CT- [place] soft tissue density within
the left periorbital soft tissues, Compatible with left periorbital contusion. No evidence for ) and other (CT facial bones cont= No evidence for facial bone fracture)
*Pulse Oximetry
Patient hypoxic: no
*EKG
Interpreted by ED Provider?: NA
Rate: EKG- N/A
*Senior Game Designer Interpretation
Rate: Senior Game Designer- N/A
*Critical Care Note
Total Time (30-74mins, 75-104mins- exclusive of procedures): Not Applicable
ED Attending Note
-
Portions of this chart may have been created with voice recognition software.� Occasional wrong word or��sound alike� substitutions may have occurred due to the inherent limitations of voice recognition software.
Discharge Plan
Departure
Patient Disposition: Home (Routine Discharge)
Date of Disposition: 03/26/24
Time of Disposition: 21:17
Patient with high blood pressure during this ER visit?: Yes
Condition: Good
Covid-19: Not Applicable
Discharge Problem:
Accidental fall, Contusion, Concussion
Instructions: Concussion, Adult (DC), Contusion (DC), Preventing falls in adults, BLOOD PRESSURE
Prescriptions:
No Action
ferrous sulfate [FeroSul] 325 MG tablet
325 mg PO HS
cholecalciferol (vitamin D3) 2,000 UNITS tablet
2,000 unit PO HS
primidone 50 mg Tablet
50 mg PO DAILY
bupropion HCl 150 mg Tablet Extended Release 24 Hr
150 mg PO HS
omeprazole 20 mg Tablet,Delayed Release (Dr/Ec)
20 mg PO HS
cyanocobalamin (vitamin B-12) [Vitamin B-12] 1,000 mcg Tablet
1,000 mcg PO HS
insulin lispro [Humalog U-100 Insulin] 100 unit/mL solution
0 unit SC .VIA INSULIN PUMP
sertraline 200 mg capsule
200 mg PO HS
aspirin [[place] Aspirin] 81 MG tablet,delayed release (DR/EC)
81 mg PO HS
atorvastatin 40 mg Tablet
40 mg PO HS Qty: 30 0RF
Rx Instructions:
dose change
losartan 50 mg Tablet
50 mg PO BID Qty: 60 0RF
Rx Instructions:
dose change
nitroglycerin 0.4 mg Tablet, Sublingual
0.4 mg sublingual [id number] PRN (Reason: chest pain) Qty: 10 0RF
hydrochlorothiazide 25 mg Tablet
25 mg PO DAILY Qty: 30 0RF
Rx Instructions:
take daily at noon
acetaminophen 325 mg Tablet
650 mg PO Q4HPRN PRN (Reason: temp > 101 F) Qty: 0 0RF
Insulin Pump [Patient's Own Insulin Pump]
See Rx Instructions .ROUTE .COMPLEX Qty: 0 0RF
Rx Instructions:
as directed
Referrals:
Francisco Brar MD [Family Provider] - As needed
Activity Restrictions/Additional Instructions:
As discussed, the CT of the head is normal and there are no facial bone fractures. Please keep your abrasion clean with warm soapy water. Tylenol for any headache pain. You most likely have a concussion. Please increase your water intake to 8-8oz
glasses daily. Follow up with the family doctor as needed. IF YOU HAVE ANY OTHER CONCERNS PLEASE RETURN TO THE EMERGENCY ROOM.
Interventions
Interventions:
*Risk Screen - Suicide Last Done: 03/26/24 19:06
*General Assessment Last Done: 03/26/24 19:06
*Neglect/Abuse Screening Last Done: 03/26/24 19:06
*ED COVID-19 Vaccine History Last Done: 03/26/24 19:06
Discharge Date and Time
Print Language: FAROESE
[2024-03-26 21:24] VITALS: BP 175/69
[2024-03-26 21:28] VITALS: BP 175/69
== END 2024-03-26 21:29 | disposition home or self-care (01) ==
LOC: EMR 19:01
PROVIDERS: EMERGENCY PHYSICIAN Emergency Medicine; FAMILY PHYSICIAN Family Medicine
DX: S06.0XAA Concussion with loss of consciousness status unknown, initial encounter (principal); S00.12XA Contusion of left eyelid and periocular area, initial encounter; W19.XXXA Unspecified fall, initial encounter; K21.9 Gastro-esophageal reflux disease without esophagitis; I10 Essential (primary) hypertension; E78.00 Pure hypercholesterolemia, unspecified; E11.9 Type 2 diabetes mellitus without complications; G47.33 Obstructive sleep apnea (adult) (pediatric); F41.8 Other specified anxiety disorders; H93.19 Tinnitus, unspecified ear; Z87.891 Personal history of nicotine dependence; Z82.49 Family history of ischemic heart disease and other diseases of the circulatory system; Z90.49 Acquired absence of other specified parts of digestive tract; Z90.710 Acquired absence of both cervix and uterus
CPT/HCPCS: 99284; 70450; 70486

== ENCOUNTER 2024-05-10 20:38 | Emergency (ER) | payer BC, SELFPAY ==
[2024-05-10 20:40] VITALS: BP 180/77
[2024-05-10] MEDS: ADACEL 0.5 ML IM (21:08)
--- NOTE | 2024-05-10 22:53 | ED.SKININJ ---
HPI-Injury
General
Chief Complaint: Skin Surface Trauma
Source: patient
Exam Limitations: none
Time Seen by Provider: 05/10/24 20:47
Nursing documentation reviewed up to this point in time: agreed with
History of Present Illness-Injury
Is this injury a work related problem?: No
Is pt an associate of [facility]?: No
Initial Injury comments:
Accidentally cut her thumb withknife. Sustained small lac to left thumb. Injury occurred just SIGNALER
Past History
Past History
ED Past Medical History: GERD, HTN, Hypercholesterolemia, IDDM, Psychiatric (Anxiety, Depression) and Other (Obstructive sleep apnea, ear infections, Tinnitus, )
ED Past Surgical History: Appendectomy, , Gynecological (Hysterectomy, Tubal, ) and Other (Parathyroidectomy, Myringotomy , )
Social History
Tobacco: Former smoker
Alcohol: Occasional
Drug: None
Personal: (Recently )
Living: alone
Employment: Employed
Family History
Family History: Early CAD
Review of Systems
Review of Systems
Allergies reviewed?: Yes
All Other Systems: ROS reviewed and negative except as documented in HPI and ROS
Constitutional: Reports no symptoms
Musculoskeletal: Reports no symptoms
Skin: Reports other (laceration to left thumb)
Neurological: Reports no symptoms
Psychiatric: Reports no symptoms
Skin Exam
Laceration
Left Thumb:
Length in cm: 1
Orientation: vertical
Type of Laceration: simple
Any active bleeding?: no active bleeding
Distal skin color and temperature: normal-warm & good color
Normal distal neurovascular exam: Yes
Range of motion: full
Phy Exam
General Physical Exam
General Presentation: well appearing and no apparent distress
General age: appears stated age
General Skin: warm and dry
General Habitus: normal
General Mental: alert
General Hydration: appears well hydrated
Musculoskeletal Exam
Musculoskeletal Exam: full ROM and neuro vasc intact
Skin Exam
Skin Exam: normal color and warm/dry
Psychiatric Exam
Psychiatric Exam: normal mood/affect
Course
Orders/Labs/Results
Orders:
Orders
05/10/24 21:05
Tetanus/Diphth/Acelpertussis [Adacel] 0.5 ml IM .ONCE ONE
05/10/24 21:07
Tetanus/Diphth/Acelpertussis [Adacel] 0.5 ml .ROUTE .STK-MED ONE
Vital Signs
Initial and Last Documented VS:
Initial Vital Signs
Temp Pulse Resp BP Pulse Ox
98.2 F 74 20 180/77 98
05/10/24 20:40 05/10/24 20:40 05/10/24 20:40 05/10/24 20:40 05/10/24 20:40
Last Documented Vital Signs
Temp Pulse Resp BP Pulse Ox
98.2 F 74 20 180/77 98
05/10/24 20:40 05/10/24 20:40 05/10/24 20:40 05/10/24 20:40 05/10/24 20:40
Procedures
Laceration Closure
Left Thumb:
Status of Wound: clean
Description of Wound Edges: sharp
Preparation: cleaned with saline
Revision/Debridement: routine- no revision
Wound exploration: explored to base- no FB
Type of Closure: Dermabond-skin glue
*Critical Care Note
Total Time (30-74mins, 75-104mins- exclusive of procedures): Not Applicable
ED Attending Note
-
Portions of this chart may have been created with voice recognition software.� Occasional wrong word or��sound alike� substitutions may have occurred due to the inherent limitations of voice recognition software.
Discharge Plan
Departure
Patient Disposition: Home (Routine Discharge)
Date of Disposition: 05/10/24
Time of Disposition: 21:06
Patient with high blood pressure during this ER visit?: No
Condition: Good
Covid-19: Not Applicable
Discharge Problem:
Laceration of thumb
Instructions: Laceration Repair With Glue (DC)
Prescriptions:
No Action
ferrous sulfate [FeroSul] 325 MG tablet
325 mg PO HS
cholecalciferol (vitamin D3) 2,000 UNITS tablet
2,000 unit PO HS
primidone 50 mg Tablet
50 mg PO DAILY
bupropion HCl 150 mg Tablet Extended Release 24 Hr
150 mg PO HS
omeprazole 20 mg Tablet,Delayed Release (Dr/Ec)
20 mg PO HS
cyanocobalamin (vitamin B-12) [Vitamin B-12] 1,000 mcg Tablet
1,000 mcg PO HS
insulin lispro [Humalog U-100 Insulin] 100 unit/mL solution
0 unit SC .VIA INSULIN PUMP
sertraline 200 mg capsule
200 mg PO HS
aspirin [Tibes Aspirin] 81 MG tablet,delayed release (DR/EC)
81 mg PO HS
atorvastatin 40 mg Tablet
40 mg PO HS Qty: 30 0RF
Rx Instructions:
dose change
losartan 50 mg Tablet
50 mg PO BID Qty: 60 0RF
Rx Instructions:
dose change
nitroglycerin 0.4 mg Tablet, Sublingual
0.4 mg sublingual [id number] PRN (Reason: chest pain) Qty: 10 0RF
hydrochlorothiazide 25 mg Tablet
25 mg PO DAILY Qty: 30 0RF
Rx Instructions:
take daily at noon
acetaminophen 325 mg Tablet
650 mg PO Q4HPRN PRN (Reason: temp > 101 F) Qty: 0 0RF
Insulin Pump [Patient's Own Insulin Pump]
See Rx Instructions .ROUTE .COMPLEX Qty: 0 0RF
Rx Instructions:
as directed
Activity Restrictions/Additional Instructions:
Follow up with your family doctor. Do not remove tape strips.
Interventions
Interventions:
*Risk Screen - Suicide Last Done: 05/10/24 20:40
*General Assessment Last Done: 05/10/24 20:40
*Neglect/Abuse Screening Last Done: 05/10/24 20:40
ED- Fall Risk Assessment Last Done: 05/10/24 20:40
*ED COVID-19 Vaccine History Last Done: 05/10/24 20:40
*Nursing Disposition Last Done: 05/10/24 21:21
ED-Skin Assessment Last Done: 05/10/24 21:19
Discharge Date and Time
Discharge Date/Time: 05/10/24 21:21
Print Language: GUAMANIAN
== END 2024-05-10 21:21 | disposition home or self-care (01) ==
LOC: EMR 20:38
PROVIDERS: EMERGENCY PHYSICIAN Emergency Medicine; FAMILY PHYSICIAN Family Medicine
DX: S61.012A Laceration without foreign body of left thumb without damage to nail, initial encounter (principal); W26.0XXA Contact with knife, initial encounter
CPT/HCPCS: 99282; 12001; 90471; 90715

== ENCOUNTER → 2024-07-08 09:30 | Outpatient (REF) | payer BC, SELFPAY ==
[2024-07-08 10:13] LABS: % Basophils 0.8 % (0-2); % Eosinophils 1.2 % (0-6); % Immature Granulocytes 0.4 % (0-0.5); % Monocytes 12.5 % (1.7-9.3); % Neutrophils 56.1 % (42.2-75.2); Absolute Eosinophils 0.1 10^3/uL (0-0.7); Absolute Lymphocytes 1.5 10^3/uL (1.2-3.4); Absolute Monocytes 0.7 10^3/uL (0.1-0.6); Absolute Neutrophils 2.9 10^3/uL (1.4-6.5); Hematocrit 33.1 % (37.0-47.0); Mean Corp Hgb Conc. 33.2 g/dL (33.0-37.0); Mean Corpuscular Hgb 30.1 pg (27.0-31.0); Mean Corpuscular Volume 90.4 fL (81.0-99.0); Mean Platelet Volume 10.6 fL (7.4-10.4); Nucleated Red Blood Cells % 0 %; Platelet Count 298 10^3/uL (130-400); Red Blood Cell Count 3.66 10^6/uL (4.20-5.40); Red Cell Dist. Width 13.5 % (11.5-14.5); White Blood Cell Count 5.2 10^3/uL (4.8-10.8)
[2024-07-08 10:40] LABS: ALT (SGPT) 24 U/L (0-35); AST (SGOT) 26 U/L (14-36); Albumin 4.3 g/dl (3.5-5.0); Alkaline Phosphatase 85 U/L (38-126); Blood Urea Nitrogen 24 mg/dl (7-17); Calcium 9.6 mg/dl (8.4-10.2); Carbon Dioxide 27 mmol/L (22-30); Chloride 100 mmol/L (98-107); Glucose 180 mg/dl (70-99); HDL Cholesterol 69 mg/dl; LDL Cholesterol, Calculated 93 mg/dl; Sodium 136 mmol/L (135-145); Total Bilirubin 0.3 mg/dl (0.2-1.3); Total Cholesterol 180 mg/dl (50-199); Triglyceride 93 mg/dl (10-149); Very Low Density Lipoprotein 18 mg/dl (0-30); eGFR > 60.00
[2024-07-08 11:08] LABS: TSH Reflex To Free T4 1.33 uIU/ml (0.47-4.68)
[2024-07-09 10:07] LABS: Glycohemoglobin (HgbA1c) 8.3 % (4.0-5.6)
== END ==
LOC: REG 09:30
PROVIDERS: ATTENDING PHYSICIAN Family Medicine; FAMILY PHYSICIAN Family Medicine
DX: E11.42 Type 2 diabetes mellitus with diabetic polyneuropathy (principal); Z79.4 Long term (current) use of insulin; I10 Essential (primary) hypertension; E10.65 Type 1 diabetes mellitus with hyperglycemia; E21.3 Hyperparathyroidism, unspecified; E11.9 Type 2 diabetes mellitus without complications; N17.9 Acute kidney failure, unspecified
CPT/HCPCS: 36415; 80053; 80061; 83036; 84443; 85025

== ENCOUNTER → 2024-11-24 16:44 | Outpatient (REF) | payer BC, SELFPAY | LOC: MRI 16:44 | PROVIDERS: ATTENDING PHYSICIAN Internal Medicine Gastroenterology; FAMILY PHYSICIAN Family Medicine | DX: K86.2 Cyst of pancreas (principal) | CPT/HCPCS: 74183; A9575 ==

== ENCOUNTER → 2024-12-02 06:18 | Outpatient (REF) | payer BC, SELFPAY | LOC: RAD 06:18 | PROVIDERS: ATTENDING PHYSICIAN Nuclear Medicine Nuclear Cardiology; FAMILY PHYSICIAN Family Medicine | DX: I77.9 Disorder of arteries and arterioles, unspecified (principal) | CPT/HCPCS: 93880 ==

== ENCOUNTER → 2025-04-30 07:37 | Outpatient (REF) | payer BC, SELFPAY ==
[2025-05-02 17:02] LABS: Fat, Fecal - Neutral Normal (Normal); Fat, Fecal - Split Normal (Normal)
== END ==
LOC: REG 07:37
PROVIDERS: ATTENDING PHYSICIAN Internal Medicine Gastroenterology; FAMILY PHYSICIAN Family Medicine
DX: R19.5 Other fecal abnormalities (principal)
CPT/HCPCS: 82272; 82653; 82705; 83993

== ENCOUNTER → 2025-05-18 07:15 | Outpatient (REF) | payer BC, SELFPAY ==
[2025-05-18 07:58] LABS: % Basophils 0.5 % (0-2); % Eosinophils 1.6 % (0-6); % Immature Granulocytes 0.4 % (0-0.5); % Lymphocytes 23.8 % (20.5-51.1); % Monocytes 10.6 % (1.7-9.3); % Neutrophils 63.1 % (42.2-75.2); Absolute Eosinophils 0.1 10^3/uL (0-0.7); Absolute Lymphocytes 1.3 10^3/uL (1.2-3.4); Absolute Monocytes 0.6 10^3/uL (0.1-0.6); Absolute Neutrophils 3.5 10^3/uL (1.4-6.5); Hematocrit 34.8 % (37.0-47.0); Hemoglobin 11.3 g/dL (12.0-16.0); Mean Corp Hgb Conc. 32.5 g/dL (33.0-37.0); Mean Corpuscular Hgb 28.9 pg (27.0-31.0); Mean Platelet Volume 10.5 fL (7.4-10.4); Nucleated Red Blood Cells % 0 %; Platelet Count 291 10^3/uL (130-400); Red Blood Cell Count 3.91 10^6/uL (4.20-5.40); Red Cell Dist. Width 14.7 % (11.5-14.5); White Blood Cell Count 5.6 10^3/uL (4.8-10.8)
[2025-05-18 08:40] LABS: Glycohemoglobin (HgbA1c) 9.4 % (4.0-5.6)
[2025-05-18 10:04] LABS: AST (SGOT) 36 U/L (14-36); Albumin 4.4 g/dl (3.5-5.0); Alkaline Phosphatase 133 U/L (38-126); Blood Urea Nitrogen 24 mg/dl (7-17); Calcium 9.6 mg/dl (8.4-10.2); Carbon Dioxide 27 mmol/L (22-30); Chloride 107 mmol/L (98-107); Glucose 115 mg/dl (70-99); Iron 66 ug/dl (37-170); Potassium 4.3 mmol/L (3.5-5.1); Sodium 141 mmol/L (135-145); Total Bilirubin 0.4 mg/dl (0.2-1.3); Total Cholesterol 236 mg/dl (50-199); Total Protein 7.5 g/dl (6.3-8.2); Triglyceride 188 mg/dl (10-149); Very Low Density Lipoprotein 37 mg/dl (0-30); eGFR > 60.00
[2025-05-18 10:14] LABS: Percent Saturation 29 % (20-50); Total Iron Binding Capacity 221 ug/dl (265-497)
[2025-05-18 10:15] LABS: TSH 3.72 uIU/ml (0.47-4.68)
[2025-05-18 10:17] LABS: ALT (SGPT) 47 U/L (0-35); HDL Cholesterol 71 mg/dl; LDL Cholesterol, Calculated 128 mg/dl
[2025-05-18 10:51] LABS: Vitamin B12 984 pg/ml (239-931)
[2025-05-18 14:32] LABS: Microalbumin, Random Urine > 57.0 mg/dl (0.6-1.7)
== END ==
LOC: REG 07:15
PROVIDERS: ATTENDING PHYSICIAN Internal Medicine Endocrinology, Diabetes & Metabolism; FAMILY PHYSICIAN Family Medicine; REFERRING PHYSICIAN Nurse Practitioner
DX: E10.319 Type 1 diabetes mellitus with unspecified diabetic retinopathy without macular edema (principal); D64.9 Anemia, unspecified
CPT/HCPCS: 36415; 80053; 80061; 82043; 82570; 82607; 82728; 82746; 83036; 83540; 83550; 84443; 85025

== ENCOUNTER → 2025-07-22 16:54 | Outpatient (REF) | payer BC, SELFPAY | LOC: WDC 16:54 | PROVIDERS: ATTENDING PHYSICIAN Family Medicine | DX: Z12.31 Encounter for screening mammogram for malignant neoplasm of breast (principal) | CPT/HCPCS: 77063; 77067 ==

== ENCOUNTER → 2025-08-25 06:50 | Outpatient (REF) | payer BC, SELFPAY ==
[2025-08-25 08:53] LABS: ALT (SGPT) 34 U/L (0-35); AST (SGOT) 27 U/L (14-36); Albumin 4.4 g/dl (3.5-5.0); Alkaline Phosphatase 135 U/L (38-126); Blood Urea Nitrogen 27 mg/dl (7-17); Calcium 9.4 mg/dl (8.4-10.2); Carbon Dioxide 28 mmol/L (22-30); Chloride 101 mmol/L (98-107); Glucose 166 mg/dl (70-99); HDL Cholesterol 58 mg/dl; LDL Cholesterol, Calculated 96 mg/dl; Potassium 4.2 mmol/L (3.5-5.1); Sodium 137 mmol/L (135-145); Total Protein 7.5 g/dl (6.3-8.2); Very Low Density Lipoprotein 36 mg/dl (0-30); eGFR > 60.00
[2025-08-25 09:22] LABS: TSH 2.45 uIU/ml (0.47-4.68)
[2025-08-25 11:13] LABS: Glycohemoglobin (HgbA1c) 7.8 % (4.0-5.6)
== END ==
LOC: REG 06:50
PROVIDERS: ATTENDING PHYSICIAN Internal Medicine Endocrinology, Diabetes & Metabolism; FAMILY PHYSICIAN Family Medicine
DX: E10.319 Type 1 diabetes mellitus with unspecified diabetic retinopathy without macular edema (principal)
CPT/HCPCS: 36415; 80053; 80061; 83036; 84443

== ENCOUNTER → 2025-09-17 13:14 | Outpatient (REF) | payer BC, SELFPAY | LOC: PAVMRI 13:14 | PROVIDERS: ATTENDING PHYSICIAN Nurse Practitioner; FAMILY PHYSICIAN Family Medicine | DX: K86.2 Cyst of pancreas (principal) | CPT/HCPCS: 74183; A9575 ==